=== PATIENT | female | born 1965 | race Caucasian/White ===

== ENCOUNTER 2022-08-03 10:41 | Day surgery (SDC) | payer MEDICARE, MEDICAID, SELFPAY ==
[2022-07-29 14:38] VITALS: BMI 18.3
[2022-08-03 11:05] VITALS: BP 188/88; PULSE 86; RESP 18; TEMP 36.3; O2SAT 95
--- NOTE | 2022-08-03 11:28 | HO.ANESPROP2 ---
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 Double vision Encephalopathy Enteropathic arthritis Gastroparesis GERD (gastroesophageal reflux disease) History of asthma History of rhabdomyolysis Hyperlipidemia Hypertension Hypesthesia Impaired skin integrity 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 Low back pain Multiple pulmonary nodules Myalgia, other site Occipital neuralgia Pressure injury of left buttock, stage 2 PTSD (post-traumatic stress disorder) Recurrent iritis Sleep disturbances Slow transit constipation Smoker Spastic hemiparesis Spastic hemiplegia Unintentional weight loss UTI (urinary tract infection) Surgical History Surgical History History of ankle surgery History of decompression of median nerve History of loop recorder Hx of cataract extraction Hx of elbow surgery Hx of hysterectomy Hx of nasal septoplasty Hx of resection of small bowel Hx of shoulder surgery Hx of tubal ligation Status post above-knee amputation of right lower extremity Social History Social History Are you a primary child care supervisor to a significant other at home: No Do you presently have visiting nurse or other home services: 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 If so, by whom?: No Are you DNR?: No Advance Directives: No Advance Directives Information Provided: Yes Advance Directives on File: No Recently lost weight without trying: Yes How much weight loss: 34pounds or more Eating poorly because of decreased appetite: No Nutrition screen score: 6 Nutrition Risks: Dental problems Meds Allergies Allergy/AdvReac Type Severity Reaction Status Date / Time varenicline [From Chantix] Allergy Unknown Unknown Verified 07/29/22 14:30 codeine AdvReac Severe Nausea and Verified 07/29/22 14:30 Vomiting tramadol AdvReac Severe Nausea and Verified 07/29/22 14:30 Vomiting Home Medications Medication Instructions Recorded Confirmed Last Taken Type amitriptyline 75 mg tablet 75 mg PO BEDTIME 07/29/22 07/29/22 Unknown History aspirin 81 mg tablet,delayed 81 mg PO DAILY 07/29/22 07/29/22 Unknown History release atorvastatin 20 mg tablet 20 mg PO BEDTIME 07/29/22 07/29/22 Unknown History melatonin 5 mg tablet 5 mg PO BEDTIME PRN Insomnia 07/29/22 07/29/22 Unknown History metoprolol succinate 25 mg 25 mg PO DAILY 07/29/22 07/29/22 Unknown History tablet,extended release 24 hr pantoprazole 40 mg tablet,delayed 40 mg PO BID 07/29/22 07/29/22 Unknown History release Exam Exam Date and Time: August 02, 2022 1041 Height,Weight and Vital Signs: Height 5 ft 5 in Weight 49.895 kg Assessment and Plan Assessment Anesthesia Assessment: Chart Reviewed Documented by User: Hollie Sam DO 08/03/22 11:28 [facility] Past Medical History Medical History Anal intraepithelial neoplasia III Anxiety with depression Ataxia Wallace's esophagus Bilateral occipital neuralgia Bipolar disorder Cellulitis of buttock Cerebral degeneration Cerebral vascular accident Cervicogenic headache Chronic uveitis of both eyes Closed fracture of multiple ribs of right side with routine healing Coccydynia Crohn's disease 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 Double vision Encephalopathy Enteropathic arthritis Gastroparesis GERD (gastroesophageal reflux disease) History of asthma History of rhabdomyolysis Hyperlipidemia Hypertension Hypesthesia Impaired skin integrity 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 Low back pain Multiple pulmonary nodules Myalgia, other site Occipital neuralgia Pressure injury of left buttock, stage 2 PTSD (post-traumatic stress disorder) Recurrent iritis Sleep disturbances Slow transit constipation Smoker Spastic hemiparesis Spastic hemiplegia Unintentional weight loss UTI (urinary tract infection) Surgical History Surgical History History of ankle surgery History of decompression of median nerve History of loop recorder Hx of cataract extraction Hx of elbow surgery Hx of hysterectomy Hx of nasal septoplasty Hx of resection of small bowel Hx of shoulder surgery Hx of tubal ligation Status post above-knee amputation of right lower extremity History of Problems with Anesthesia: No Social History Social History Are you a primary child care supervisor to a significant other at home: No Do you presently have visiting nurse or other home services: 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 If so, by whom?: No Are you DNR?: No Advance Directives: No Advance Directives Information Provided: Yes Advance Directives on File: No Recently lost weight without trying: Yes How much weight loss: 34pounds or more Eating poorly because of decreased appetite: No Nutrition screen score: 6 Nutrition Risks: Dental problems Meds Allergies Allergy/AdvReac Type Severity Reaction Status Date / Time varenicline [From Chantix] Allergy Unknown Unknown Verified 07/29/22 14:30 codeine AdvReac Severe Nausea and Verified 07/29/22 14:30 Vomiting tramadol AdvReac Severe Nausea and Verified 07/29/22 14:30 Vomiting Home Medications Medication Instructions Recorded Confirmed Last Taken Type amitriptyline 75 mg tablet 75 mg PO BEDTIME 07/29/22 07/29/22 Unknown History aspirin 81 mg tablet,delayed 81 mg PO DAILY 07/29/22 07/29/22 Unknown History release atorvastatin 20 mg tablet 20 mg PO BEDTIME 07/29/22 07/29/22 Unknown History melatonin 5 mg tablet 5 mg PO BEDTIME PRN Insomnia 07/29/22 07/29/22 Unknown History metoprolol succinate 25 mg 25 mg PO DAILY 07/29/22 07/29/22 Unknown History tablet,extended release 24 hr pantoprazole 40 mg tablet,delayed 40 mg PO BID 07/29/22 07/29/22 Unknown History release Exam Exam Date and Time: August 03, 2022 1124 Height,Weight and Vital Signs: Height 5 ft 5 in Weight 49.895 kg Vital Signs Temperature 97.3 F 08/03/22 11:05 Pulse Rate 86 08/03/22 11:05 Respiratory Rate 18 08/03/22 11:05 Blood Pressure 188/88 H 08/03/22 11:05 Pulse Oximetry 95 08/03/22 11:05 Oxygen Delivery Method Room Air 08/03/22 11:05 Temperature 97.3 F 08/03/22 11:05 Pulse Rate 86 08/03/22 11:05 Respiratory Rate 18 08/03/22 11:05 Blood Pressure 188/88 H 08/03/22 11:05 Pulse Oximetry 95 08/03/22 11:05 Oxygen Delivery Method Room Air 08/03/22 11:05 Airway Mallampati Class: I TM Dist: >3cm Neck ROM: Full Denture: Upper Heart: S1S2 Lungs: CTAB Assessment and Plan Assessment Anesthesia Assessment: Anesthesia Plan Discussed (Patient insists on leaving upper dentures in. Understands risk of damage ) and Chart Reviewed Final Anesthetic Review History of Problems with Anesthesia: No NPO: Yes ASA Class: III Final Preanesthetic Review: No Changes in Pt Med Stat, Meds/Allgs Chart Reviewed, Consent Obtained/Reviewed and Anes Risks/Benef Reviewed Patient Risk: Intermediate Procedure Risk: Low Anesthetic Plan Anesthetic Plan: GA and Agree w/ Assess. and Plan Disposition: Standard PACU
[2022-08-03] MEDS: Lactated Ringers 1,000 ML 100 ML IVCONT (11:45)
--- NOTE | 2022-08-03 11:45 | PC.NURSE ---
iv's x 2 rn's - poor stick
[2022-08-03 12:43] VITALS: BP 154/95; PULSE 85; RESP 20; TEMP 36.3; O2SAT 100
[2022-08-03 12:48] VITALS: BP 155/85; PULSE 82; RESP 20; O2SAT 99
[2022-08-03 12:53] VITALS: BP 142/82; PULSE 82; RESP 20; O2SAT 99
--- NOTE | 2022-08-03 12:56 | HO.OPHTHAL ---
Ophthalmology Operative Note Date of Service: 08/03/22 Narrative: Diagnosis esotropia. Procedure bilateral medial rectus recessions of 3.[address] Avery. Anesthesia general. Complications none. The patient was brought to the operating room placed under general anesthesia. The eyes were prepped and draped in the usual sterile ophthalmic fashion. A lid speculum was placed in the right eye and incisions made at bare sclera in the inferonasal fornix. The medial rectus muscle was hooked and secured with a double-armed Vicryl suture. The muscle was disinserted from the globe and reattached to a position 3.5 mm behind the original insertion. Conjunctiva was closed with interrupted Vicryl sutures. An identical procedure was then performed on the left eye. The patient was then awoken from general anesthesia and discharged to postoperative recovery in good condition.
[2022-08-03 12:58] VITALS: BP 154/83; PULSE 80; RESP 20; O2SAT 98
[2022-08-03 13:13] VITALS: BP 154/83; PULSE 80; RESP 20; O2SAT 98
== END 2022-08-03 14:00 | disposition home or self-care (01) ==
PROVIDERS: PCP Nurse Practitioner Family; Visit Provider Ophthalmology
PROC: (CPT 67311; principal; 2022-08-03 12:00)
DX: H53.2 Diplopia (principal); H20.029 Recurrent acute iridocyclitis, unspecified eye; I10 Essential (primary) hypertension; E78.5 Hyperlipidemia, unspecified; Z86.73 Personal history of transient ischemic attack (TIA), and cerebral infarction without residual deficits; G81.11 Spastic hemiplegia affecting right dominant side; R91.8 Other nonspecific abnormal finding of lung field; F32.A Depression, unspecified; K21.9 Gastro-esophageal reflux disease without esophagitis; Z79.899 Other long term (current) drug therapy; Z88.8 Allergy status to other drugs, medicaments and biological substances; F17.210 Nicotine dependence, cigarettes, uncomplicated
CPT/HCPCS: 67311; J1100; J2405; J3010